=== PATIENT | male | born 1980 | race Two or more races ===

== ENCOUNTER 2024-10-07 15:46 | Emergency (ER) | payer OTHER ==
[~2024-10-07] VITALS: Ht 170.2 cm; Wt 72.6 kg
[2024-10-07 21:18] VITALS: BP 110/65; TEMP 98; O2SAT 98
== END 2024-10-07 21:19 ==
LOC: ER 15:55
DX: Z45.2 Encounter for adjustment and management of vascular access device (principal); R07.9 Chest pain, unspecified; Z86.69 Personal history of other diseases of the nervous system and sense organs; Z87.39 Personal history of other diseases of the musculoskeletal system and connective tissue; Z87.2 Personal history of diseases of the skin and subcutaneous tissue
CPT/HCPCS: 71045-TC